=== PATIENT | female | born 1990 | race Caucasian/White ===

== ENCOUNTER 2018-02-26 09:22 | Emergency (ER) | payer SELFPAY ==
[~2018-02-26] VITALS: Ht 170.2 cm; Wt 73.0 kg
[2018-02-26] MEDS ORDERED: IBUPROFEN 600MG TABLET PO ONE (11:00)
[2018-02-26 11:09] VITALS: BP 110/60
== END 2018-02-26 11:28 | disposition home or self-care (01) ==
LOC: ER 09:22
DX: S10.93XA Contusion of unspecified part of neck, initial encounter (principal); F12.10 Cannabis abuse, uncomplicated; V49.40XA Driver injured in collision with unspecified motor vehicles in traffic accident, initial encounter; Y93.89 Activity, other specified; Y92.488 Other paved roadways as the place of occurrence of the external cause; Y99.8 Other external cause status
CPT/HCPCS: 81025; 99282

== ENCOUNTER 2018-06-10 12:56 | Emergency (ER) | payer SELFPAY ==
[~2018-06-10] VITALS: Ht 170.2 cm; Wt 73.0 kg
[2018-06-10] MEDS ORDERED: IBUPROFEN 800MG TABLET PO ONE (14:30)
[2018-06-10 16:15] VITALS: BP 109/55
== END 2018-06-10 16:19 | disposition home or self-care (01) ==
LOC: ER 12:56
DX: M79.642 Pain in left hand (principal); R03.0 Elevated blood-pressure reading, without diagnosis of hypertension; F12.90 Cannabis use, unspecified, uncomplicated
CPT/HCPCS: 73130; 81025; 99284

== ENCOUNTER 2024-05-11 19:23 | Emergency (ER) | payer OTHER ==
[~2024-05-11] VITALS: Ht 170.2 cm; Wt 71.0 kg
[2024-05-11 19:28] VITALS: O2SAT 99
[2024-05-11 19:29] VITALS: TEMP 36.94740; O2SAT 99
[2024-05-11 23:09] VITALS: BP 123/89; PULSE 87; RESP 15; TEMP 98.5
[2024-05-11] MEDS: KETOROLAC 30MG/ML VIAL IM ONE (23:09)
[2024-05-11] MEDS: ACETAMINOPHEN 325MG TABLET PO ONE (23:09)
== END 2024-05-11 23:07 ==
LOC: ER 19:23
DX: S83.8X1A Sprain of other specified parts of right knee, initial encounter (principal); S80.01XA Contusion of right knee, initial encounter; F12.90 Cannabis use, unspecified, uncomplicated; W18.39XA Other fall on same level, initial encounter; Y93.89 Activity, other specified; Y92.89 Other specified places as the place of occurrence of the external cause; Y99.8 Other external cause status
CPT/HCPCS: 99283; 29505; 81025; 73564; 96372; J1885